=== PATIENT | male | born 1975 | race Two or more races ===

== ENCOUNTER 2022-12-16 09:08 | Outpatient (CLI) | payer OTHER | END 2022-12-16 09:09 | disposition home or self-care (01) | LOC: ULT 09:08 | PROVIDERS: ATTEND Student in an Organized Health Care Education/Training Program | DX: R10.13 Epigastric pain (principal); R07.89 Other chest pain; B66 Other fluke infections; K76.89 Other specified diseases of liver | CPT/HCPCS: 76700; 93005; 93010; 93017 ==